=== PATIENT | female | born 1975 | race Hispanic/Latino ===

== ENCOUNTER 2018-09-09 23:27 | Emergency (ER) | payer BC ==
[2018-09-09 23:55] LABS: Hemoglobin 11.3 g/dL (12.0-16.0); Mean Corpuscular HGB CONC 31.9 g/dL (32.0-36.0); Mean Corpuscular Hemoglobin 23.3 pg (27.0-31.0); Mean Corpuscular Volume 73.1 fL (78.0-98.0); Mean Platelet Volume 8.6 fL (7.4-10.4); Platelet Count 386 thou/uL (130-400); RBC Distribution Width 15.1 % (11.5-14.5); Red Blood Cell (RBC) Count 4.84 mill/uL (4.20-5.40); White Blood Cell (WBC) Count 9.3 thou/uL (4.8-10.8)
[2018-09-10] MEDS ORDERED: Aspirin 325 MG TAB ONE (00:08)
[2018-09-10] MEDS ORDERED: Lorazepam 2 MG/ML VIAL ONE (00:08)
--- NOTE | 2018-09-10 00:12 | RAD ---
Exam: Chest one view: HISTORY: Headache and elevated blood pressure FINDINGS: Monitor leads overlie the chest. Heart size is normal. The lungs are clear. IMPRESSION: No significant acute intrathoracic disease.
[2018-09-10 00:13] LABS: #Basophils 0.1 thou/uL (0.0-0.2); #Lymphocytes 1.7 thou/uL (1.20-3.40); #Monocytes 0.8 thou/uL (0.11-0.59); #Neutrophils 6.7 thou/uL (1.40-6.50); %Basophils 0.7 % (0.0-1.0); %Eosinophils 0.5 % (0.0-10.0); %Lymphocytes 17.9 % (21.0-51.0); %Neutrophils 71.9 % (42.0-75.0); RBC Morphology Normal
[2018-09-10 00:17] LABS: ALT (SGPT) 20 U/L (8-55); AST (SGOT) 17 U/L (5-34); Albumin 4.2 g/dL (3.5-5.0); Alkaline Phosphatase 87 U/L (40-150); Anion Gap 11 mmol/L (10-20); BUN (Urea Nitrogen) 13 mg/dL (7.0-18.7); Bilirubin, Total 0.2 mg/dL (0.2-1.2); Calc. Creatinine Clearance 0 mL/min (70-130); Calcium 9.5 mg/dL (7.8-10.44); Carbon Dioxide 20 mmol/L (22-29); Chloride 109 mmol/L (98-107); Estimated GFR-MDRD 87; Globulin 3.5 g/dL (2.4-3.5); Glucose 126 mg/dL (70-105); Lipase 19 U/L (8-78); Potassium 3.3 mmol/L (3.5-5.1); Protein, Total 7.7 g/dL (6.0-8.3); Sodium 137 mmol/L (136-145)
== END 2018-09-10 00:41 | disposition home or self-care (01) ==
LOC: ERS 23:27
DX: F43.0 Acute stress reaction (principal); F41.1 Generalized anxiety disorder
CPT/HCPCS: 71045; 80053; 83690; 84443; 84484; 85025; 93005; 96374; J2060

== ENCOUNTER 2023-06-20 14:44 | Outpatient (CLI) | payer BC | END 2023-06-20 14:45 | disposition home or self-care (01) | LOC: BICMAMMO 14:44 | PROVIDERS: ATTEND Obstetrics & Gynecology | DX: N63.15 Unspecified lump in the right breast, overlapping quadrants (principal); N63.12 Unspecified lump in the right breast, upper inner quadrant | CPT/HCPCS: 77066; G0279 ==

== ENCOUNTER → 2023-06-25 | Day surgery (SDC) | payer BC | LOC: BICULT 12:24 | PROVIDERS: ATTEND Obstetrics & Gynecology | PROC: 0HB5XZX Excision of Chest Skin, External Approach, Diagnostic (ICD-10-PCS; principal; 2023-06-25) | DX: C50.211 Malignant neoplasm of upper-inner quadrant of right female breast (principal); C50.811 Malignant neoplasm of overlapping sites of right female breast | CPT/HCPCS: 19083; 19084; 88305; 88341; 88342 ==

== ENCOUNTER 2023-07-11 09:27 | Outpatient (CLI) | payer BC | END 2023-07-11 09:28 | disposition home or self-care (01) | LOC: BICMRI 09:27 | PROVIDERS: ATTEND Surgery | DX: C50.911 Malignant neoplasm of unspecified site of right female breast (principal) | CPT/HCPCS: A9577; C8908 ==

== ENCOUNTER 2023-07-28 07:52 | Outpatient (CLI) | payer BC | END 2023-07-28 07:53 | disposition home or self-care (01) | LOC: CT 07:52 | PROVIDERS: ATTEND Internal Medicine Hematology & Oncology | DX: C50.919 Malignant neoplasm of unspecified site of unspecified female breast (principal); E04.2 Nontoxic multinodular goiter; M53.3 Sacrococcygeal disorders, not elsewhere classified; R91.8 Other nonspecific abnormal finding of lung field | CPT/HCPCS: 71260; 74177; 78306; A9503 ==

== ENCOUNTER 2023-10-17 11:00 | Outpatient (CLI) | payer BC | END 2023-10-17 11:01 | disposition home or self-care (01) | LOC: PET 11:00 | PROVIDERS: ATTEND Internal Medicine Critical Care Medicine | DX: R91.8 Other nonspecific abnormal finding of lung field (principal) | CPT/HCPCS: 78815; A9552 ==

== ENCOUNTER 2025-05-24 07:53 | Outpatient (CLI) | payer BC | END 2025-05-24 07:54 | disposition home or self-care (01) | LOC: RAD 07:53 | PROVIDERS: ATTEND Internal Medicine Critical Care Medicine | DX: R06.00 Dyspnea, unspecified (principal) | CPT/HCPCS: 71046 ==